=== PATIENT | male | born 1965 | race Caucasian/White ===

== ENCOUNTER 2019-02-01 10:24 | Observation (INO) | payer BC ==
--- NOTE | 2019-02-01 10:55 | ED ---
HPI Chest Pain - HPI Summary HPI Summary: This pt is a 53 y/o male [facility] c/o intermittent chest heaviness since 15:00 yesterday. Pt reports he drove 7 hours 4 days ago and yesterday he drove 7 hours back home. While driving home yesterday around 15:00 he began to feel chest heaviness, described as "50 pounds sitting on" his chest. Denies associated symptoms of nausea, diaphoresis, SOB, dizziness. At its worst his chest pain is rated 3 to 4 out of 10 in severity. He states belching helps his chest heaviness. Pt reports he had difficulty sleeping last night secondary to chest heaviness. Currently he rates his pain 2/10 in severity. Denies SOB or calf pain. Pt denies feeling this pain in the past. Denies hx of indigestion or KS. Denies any past cardiac stress tests. PMHx: DVT in August 2018. Pt took Xarelto for 3 months for DVT, at that time he had flown and drove prior to onset of symptoms. The last time he saw his PCP was at the end of November 2018. FHx: both grandparents with fatal KS in their 80s and father with bypass surgery at age 54. - History of Current Complaint Chief Complaint: EDChestPainROMI Time Seen by Provider: 02/01/19 10:44 Hx Obtained From: Patient Onset/Duration: Started Days Ago - 1, Still Present Timing: Lasting Days - 1 Current Severity: Mild Pain Intensity: 2 Pain Scale Used: 0-10 Numeric Chest Pain Location: Diffuse Chest Pain Radiates: No Character: Heaviness Aggravating Factor(s): Nothing Alleviating Factor(s): Other: - belching Associated Signs and Symptoms: Positive: Chest Pain. Negative: Dizziness, Shortness of Breath, Fever, Chills, Diaphoresis, Nausea, Calf Pain/Swelling - Allergy/Home Medications Allergies/Adverse Reactions: Allergies Allergy/AdvReac Type Severity Reaction Status Date / Time Sulfa (Sulfonamide AdvReac Rash Verified 02/01/19 10:28 Antibiotics) Home Medications: Home Medications NK [No Home Medications Reported] 02/01/19 [History Confirmed 02/01/19] PMH/Surg Hx/FS Hx/Imm Hx Endocrine/Hematology History: Denies: Hx Diabetes Cardiovascular History: Reports: Hx Deep Vein Thrombosis Denies: Hx Hypertension, Hx Myocardial Infarction Sensory History: Denies: Hx Deafness - Cancer History Cancer Type, Location and Year: None reported - Surgical History Surgery Procedure, Year, and Place: None Infectious Disease History: No Infectious Disease History: Denies: History Other Infectious Disease, Traveled Outside the [place] in Last 30 Days - Family History Known Family History: Positive: Cardiac Disease - KS in both grandparents during their 80s. Father with bypass surgery. Negative: Hypertension, Diabetes - Social History Alcohol Use: Daily Alcohol Amount: 2-3 glasses of wine/ day Substance Use Type: Reports: None Smoking Status (MU): Never Smoked Tobacco Review of Systems Negative: Fever, Chills, Skin Diaphoresis Positive: Chest Pain Negative: Shortness Of Breath Negative: Nausea Negative: Other - calf pain Neurological: Other - NEG: dizziness All Other Systems Reviewed And Are Negative: Yes Physical Exam - Summary Physical Exam Summary: VITAL SIGNS: Reviewed. GENERAL: Patient is a well-developed and nourished male who is lying comfortable in the stretcher. Patient is not in any acute respiratory distress. HEAD AND FACE: Normocephalic EYES: PERRLA, EOMI x 2. EARS: Hearing grossly intact. MOUTH: Oropharynx within normal limits. NECK: Supple, trachea is midline, no adenopathy, no JVD, no carotid bruit. CHEST: Symmetric, no tenderness at palpation LUNGS: Clear to auscultation bilaterally. No wheezing or crackles. CVS: Regular rate and rhythm, S1 and S2 present, no murmurs or gallops appreciated. ABDOMEN: Soft, non-tender. Bowel sounds are normal. No abdominal abnormal pulsations. EXTREMITIES: Full ROM in all major joints, no edema, no cyanosis or clubbing. NEURO: Alert and oriented x 3. No acute neurological deficits. Speech is normal and follows commands. SKIN: Dry and warm Triage Information Reviewed: Yes Vital Signs On Initial Exam: Initial Vitals Temp Pulse Resp BP Pulse Ox 98.2 F 61 14 164/100 98 02/01/19 10:29 02/01/19 10:29 02/01/19 10:29 02/01/19 10:29 02/01/19 10:29 Vital Signs Reviewed: Yes Diagnostics - Vital Signs Vital Signs Temp Pulse Resp BP Pulse Ox 02/01/19 10:29 98.2 F 61 14 164/100 98 - Laboratory Result Diagrams: 02/01/19 11:02 02/01/19 11:02 Lab Statement: Any lab studies that have been ordered have been reviewed, and results considered in the medical decision making process. - Radiology Chest XR Radiology Interpretation Completed By: Radiologist Summary of Radiographic Findings: IMPRESSION: No radiographic evidence for acute cardiopulmonary abnormality on this portable chest x-ray. Dr. Moore has reviewed this report. - EKG 10:35 Cardiac Rate: Bradycardia - at 57 bpm EKG Rhythm: Sinus Bradycardia Summary of EKG Findings: No ST elevations. T wave inversion in leads III and aVF. ST depression in V4-V6. 11:27 Cardiac Rate: Bradycardia - at 57 bpm EKG Rhythm: Sinus Bradycardia Summary of EKG Findings: No ST elevations. T wave inversion in lead III. Normal axis. Re-Evaluation - Re-Evaluation First Eval Re-Evaluation Time: 13:37 Change: Worse Comment: Heart rate is 38 bpm. Blood pressure 113/73. He c/o mild dizziness. Chest Pain Course/Dx - Course Assessment/Plan: This patient is a 53-year-old male who presents to the emergency department with a chief complaint of having chest pain. He reports that he had a recent long drive and he has history of DVT. Patient reports that the pain is as somebody sitting on top of his chest. Blood work without any significant abnormality except for glucose of 100. Troponin is 0.00. D- dimer is less than 200. Urinalysis negative for UTI. In the ED course the patient continued to have slight pain and left-sided chest, and he became tachycardic. The heart rate decreased to 37 - 38 bpm. Slight dizziness but no shortness of breath. Because of the symptoms I discussed my physical exam and findings with Dr. Cohen, hospitalist, who accepted the patient for admission. Patient is hemodynamically stable, alert and oriented 3. - Chest Pain Differential Diagnosis/HQI/PQRI: Acute KS, ACS, Angina, CHF, Chest Wall, GI Disease, Lower Respiratory Infection - Diagnoses Provider Diagnoses: Chest pain, Bradycardia - Provider Notifications Discussed Care Of Patient With: Mukul Cohen - hospitalist Time Discussed With Above Provider: 13:41 Instructed by Provider To: Admit As Inpatient Discharge - Sign-Out/Discharge Documenting (check all that apply): Patient Departure - Admit to [facility] Patient Received Moderate/Deep Sedation with Procedure: No - Discharge Plan Condition: Stable Disposition: ADMITTED TO [facility] - Billing Disposition and Condition Condition: STABLE Disposition: Admitted to [facility] - Attestation Statements Document Initiated by Mohsenibe: Yes Documenting Scribe: Florence Alcazar Provider For Whom Scribe is Documenting (Include Credential): Cristian Moore MD Scribe Attestation: Florence Dugan, scribed for Cristian Moore MD on 02/02/19 at 1010. Scribe Documentation Reviewed: Yes Provider Attestation: The documentation as recorded by the Florence robbins accurately reflects the service I personally performed and the decisions made by me, Cristian Moore MD Status of Scribe Document: Viewed
[2019-02-01] MEDS ORDERED: Nitroglycerin TAB 0.4 MG* 0.4 MG TAB SL PRN (10:56)
[2019-02-01] MEDS ORDERED: Metoprolol Tartrate TAB* 25 MG PO ONE (10:56)
[2019-02-01] MEDS ORDERED: Aspirin 81 mg CHEW TAB* 81 MG TAB.CHEW PO ONE (10:56)
[2019-02-01 11:11] LABS: ABS Basophils 0.1 10^3/ul (0-0.2); ABS Eosinophils 0.1 10^3/ul (0-0.6); ABS Lymphocytes 1.8 10^3/ul (1.0-4.8); ABS Monocytes 0.5 10^3/ul (0-0.8); ABS Neutrophils 5.1 10^3/ul (1.5-7.7); ABS Nucleated RBC 0 10^3/ul; Eosinophil % 1.2 %; Hematocrit 45 % (42-52); Hemoglobin 15.6 g/dl (14.0-18.0); Mean Corpuscular HGB Conc 35 g/dl (31-36); Mean Corpuscular Hemoglobin 33 pg (27-31); Mean Corpuscular Volume 96 fL (80-94); Mean Platelet Volume 7.9 fL (7.4-10.4); Nucleated Red Blood Cells % 0; Platelet Count 252 10^3/ul (150-450); Red Blood Count 4.74 10^6/ul (4.00-5.40); Red Cell Distribution Width 13 % (10.5-15); White Blood Count 7.6 10^3/ul (3.5-10.8)
[2019-02-01 11:29] LABS: Albumin 4.2 g/dL (3.2-5.2); Albumin/Globulin Ratio 1.6 (1-3); BUN/Creatinine Ratio 12.2 (8-20); Calcium 8.9 mg/dL (8.6-10.3); EGFR African American 80.5 (>60); EGFR Non-African American 66.5 (>60); Globulin 2.6 g/dL (2-4); Potassium 3.9 mmol/L (3.5-5.0); Total Bilirubin 0.6 mg/dL (0.2-1.0); Total Protein 6.8 g/dL (6.4-8.9)
[2019-02-01 11:33] LABS: CKMB ng/mL 1.3 ng/mL (0.6-6.3)
[2019-02-01 12:00] LABS: Urine Appearance Clear; Urine Bilirubin Negative (Negative); Urine Blood Negative (Negative); Urine Color Colorless; Urine Glucose Negative (Negative); Urine Ketones Negative (Negative); Urine Nitrite Negative (Negative); Urine Protein Negative (Negative); Urine Specific Gravity 1.002 (1.010-1.030); Urine Urobilinogen Negative (Negative)
[2019-02-01 12:13] LABS: TSH (Thyroid Stimulating Horm) 3.06 mcIU/mL (0.34-5.60)
[2019-02-01] MEDS ORDERED: Atorvastatin* 40 MG TAB PO ONE (15:30)
[2019-02-01 16:08] LABS: HDL Cholesterol 53.3 mg/dL
--- NOTE | 2019-02-01 17:09 | ECHO ---
Patient: FEI RIZZO [facility] Rec#: [id number] : 1965 Date: 02/01/2019 Age: 53y Height: 180.34 cm / 71.0 in Weight: 90.72 kg / 199.9 lbs Sex: M BSA: 2.11 Room#: ED 5 Admit Date#: 02/01/2019 Type: Inpatient Referring: Mukul Cohen Reading: Otto Sahni MD Hard Candy Spinner: Fariba Monson RDCS,RDMS CC: Abdifatah Willard MD Transthoracic Echocardiogram Indication: CP BP: 125/86 HR: 53 Rhythm: Bradycardia Findings History: DVT Technical Comments: The study quality is good. Left Ventricle: The left ventricular chamber size is normal. Mild concentric left ventricular hypertrophy is observed. Global left ventricular wall motion and contractility are within normal limits. The estimated ejection fraction is 50-55%. There is no consistent Doppler evidence of clinically significant diastolic dysfunction. Left Atrium: The left atrium is mildly dilated. Right Ventricle: The right ventricular chamber size and systolic function are within normal limits. Right Atrium: The right atrium is mildly dilated. Aortic Valve: The aortic valve is trileaflet. Systolic excursion of the aortic valve is normal. There is a trace of aortic regurgitation. There is no evidence of aortic stenosis. Mitral Valve: The mitral valve leaflets appear normal. There is a trace of mitral regurgitation. There is no evidence of mitral stenosis. Tricuspid Valve: The tricuspid valve leaflets are normal. There is mild tricuspid regurgitation. No pulmonary hypertension is noted. Pulmonic Valve: The pulmonic valve appears normal. There is a trace pulmonic regurgitation. Pericardium: There is no significant pericardial effusion. Aorta: There is borderline dilatation of the ascending aorta. There is no dilatation of the aortic arch. The aortic root is normal in size. Pulmonary Artery: The main pulmonary artery appears normal. Venous: The inferior vena cava appears normal in size. There is an approximate 50% respiratory change in the inferior vena cava dimension. Summary: There was not any prior study for comparison. Conclusions Mild concentric left ventricular hypertrophy is observed. Global left ventricular wall motion and contractility are within normal limits. The estimated ejection fraction is 50-55%. There is a trace of aortic regurgitation. There is a trace of mitral regurgitation. There is mild tricuspid regurgitation. There is no significant pericardial effusion. Measurements Name Value Normal Range RVIDd (AP) 2D 3 cm (0.9 - 2.6) RVDdMajor (2D) 2.6 cm (2.2 - 4.4) RAd ISD 4CH 5.8 cm (3.4 - 4.9) RA (A4C)W 4 cm (2.9 - 4.6) IVSd (2D) 1.1 cm (0.6 - 1) LVPWd (2D) 1 cm (0.6 - 1) LVIDd (2D) 5 cm (3.6 - 5.4) LVIDs (2D) 2.8 cm - LV FS (2D) 45 % (25 - 45) Aortic Annulus 2.4 cm (1.4 - 2.6) Ao root diameter (2D) 3.4 cm (2.1 - 3.5) Ascending Ao 3.5 cm (2.1 - 3.4) Aortic arch 3.4 cm (1.8 - 3.4) LA dimension (AP) 2D 4.1 cm (2.3 - 3.8) LAd ISD 4CH 5.4 cm (2.9 - 5.3) LA ISD 4CH W 4.7 cm (2.5 - 4.5) Name Value Normal Range LA ESV SP 4CH (A/L) 85.54 ml - LA ESV SP 2CH (A/L) 66.36 ml - LA ESV BP (A/L) 76.03 ml - LA ESV BP (A/L) index 36 ml/m2 - LA ESV SP 4CH (MOD) 72.56 ml - LA ESV SP 2CH (MOD) 61.84 ml - Name Value Normal Range MV E-wave Vmax 0.6 m/sec - MV deceleration time 204 msec - MV A-wave Vmax 0.7 m/sec - MV E:A ratio 0.8 ratio - P. vein S-wave Vmax 0.6 m/sec - P. vein D-wave Vmax 0.4 m/sec - P. vein S:D Vmax ratio 1.5 ratio - P. vein A-wave duration 118 msec - LV septal e' Vmax 0.09 m/sec - LV lateral e' Vmax 0.1 m/sec - LV E:e' septal ratio 7 ratio - LV E:e' lateral ratio 6 ratio - Name Value Normal Range AV Vmax 1.1 m/sec - AV VTI 25 cm - AV peak gradient 5 mmHg - AV mean gradient 2.8 mmHg - LVOT Vmax 1.1 m/sec - LVOT VTI 22.5 cm - LVOT peak gradient 5 mmHg - LVOT mean gradient 2 mmHg - LUL Vmax 0.7 m/sec - Name Value Normal Range TR Vmax 2 m/sec - TR peak gradient 16 mmHg - RAP 3 mmHg - RVSP 19 mmHg - IVC diameter 1.3 cm - Name Value Normal Range PV Vmax 0.7 m/sec - PV peak gradient 2 mmHg -
--- NOTE | 2019-02-01 17:20 | HP ---
ADMISSION HISTORY AND PHYSICAL: DATE OF ADMISSION: 02/01/19 ADMITTING PROVIDER: Mukul Cohen MD PRIMARY CARE PROVIDER: Dr. Willard. CHIEF COMPLAINT: Chest pressure. HISTORY OF PRESENT ILLNESS: Lion Hernandez is a 53-year-old male with past medical history of borderline hypertension (never on any medications) and until 3 weeks ago, a nightly bottle of wine drinker. He also has a history of occlusive DVT in the left posterior tibial veins, status post 3 months of Xarelto treatment back in August 2018. This was after a long air flight to [place] about 10 days prior. He was in his usual state of health except for of note he stopped drinking for the last 3 weeks and then drank a bottle and a half of wine 2 nights ago on 01/30/19. The next day, yesterday, he was returning on a 7-hour car ride (he had done this 7-hour car ride on Thursday as well) and he developed some tightness and pressure in his central chest that was generalized and at worse 5/10 intensity. It persisted into the morning, although he was able to sleep, and actually got a little bit worse again right before he came to the emergency room this afternoon, again 5/10. It did improve with 324mg aspirin and metoprolol 25 mg p.o. Pressure is currently 1/10. He describes the sensation as not necessarily exertional; in fact with activity, it seems to take his mind off the pressure. He denies shortness of breath, fevers, chills, lightheadedness, dizziness, or radiation down into the arm. He did have some pain or tightness in his left neck at the same time that this developed. He does get some improvement of the pain when he stretches his shoulder blades backwards. He was referred to the hospitalist service for ACS rule out, especially after he got bradycardic to the mid 30s. His troponins have been negative x2. His EKG showed some T-wave inversions in III, but no acute ST elevations or depressions. An echocardiogram was just performed but has not been read. He often exerts himself - he heats his home with an external wood fueled furnace and cuts and hauls the firewood often. He is being admitted to observation status with likely planned exercise stress test in the morning. PAST MEDICAL HISTORY: Borderline hypertension; frequent daily alcohol use of a bottle of wine a night for 20 years until 3 weeks ago and then relapsed 2 nights ago. MEDICATIONS: He is on no medications. ALLERGIES: He has allergy to SULFA DRUGS, although he took it for a month and then developed a rash. FAMILY HISTORY: His father is alive at age 84, but has had a CABG at age 65. His mother has a history of hypertension and bradycardia. His 2 brothers are healthy at age 61 and 66. Three grandparents of myocardial infarction, all in their early 80s. 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 He does a lot of plowing in the winter (not exertional) and yard work in the summer. He is a never smoker. A bottle of wine drinker a night as above. Denies any drug use. His medical surrogate is his , Chandni Hernandez. He desires to be full code. REVIEW OF SYSTEMS: A complete 14-point review of systems negative except as per HPI. PHYSICAL EXAMINATION GENERAL APPEARANCE: No acute distress. VITAL SIGNS: Temperature 98.2; pulse rate initially 61, dropped down to 38 per nurse's report; blood pressure initially 164/100; satting 98% on room air. HEENT: Normocephalic, atraumatic. Pupils are equal, round, and reactive to light. Extraocular motions intact. No scleral icterus. Moist mucous membranes. NECK: Supple. No cervical lymphadenopathy. LUNGS: Clear to auscultation bilaterally with no wheezing, rales, or rhonchi. CARDIOVASCULAR: Regular rate and rhythm. No murmurs, rubs, or gallops. ABDOMEN: Soft, nontender, nondistended. No rebound. No guarding. EXTREMITIES: Warm and well perfused. No peripheral edema. NEUROLOGIC: Moving all extremities. Orthopedic Surgeon strength 5/5. Biceps 5/5 Hip flexion 5/5. Dorsiflexion and plantarflexion 5/5. Cranial nerves II-XII intact. SKIN: No lesions. No rashes. DIAGNOSTIC STUDIES/LAB DATA: White count 7.6, hemoglobin 15.6, platelets 252. INR 0.90. Sodium 137, potassium 3.9, chloride 105, carbon dioxide 26, BUN 14 , creatinine 1.15, glucose 102, lactic acid 0.8, magnesium 2.0. AST 25, ALT 33 , alk phos 60. Troponin 0.00 x2, BNP 69. Albumin 4.2. TSH 3.06. Urinalysis: Specific gravity 1.002. Imaging: Chest x-ray demonstrated no acute abnormalities. EKG demonstrated at 11:27 bradycardia at 57, T-wave inversions in III. No ST elevations or depressions. Normal axis, QTc of 425. EKG at 10:35 was similar, but with a PVC. ASSESSMENT AND PLAN: Lion Hernandez is a 53-year-old male with past medical history of borderline hypertension, treated provoked deep venous thrombosis and frequent alcohol use, presents with chest pressure that seems nonexertional, but that was relieved with some aspirin and metoprolol. I am somewhat suspicious that his relapse with 1-1/2 bottles of alcohol after long absence may be playing a role here in revealing some musculoskeletal pains that may otherwise have been occult, but given his bradycardia (although in the setting of new beta-ramy administration of note), frequent alcohol use and family history, it seems reasonable to rule him out with a stress test in the morning and additional troponin. He got an echocardiogram here in the ED. We are awaiting on that result to come back. Given the bradycardia, I am going to hold off on any beta- blockers for now, consider restart as able. I am going to give him atorvastatin 40mg. Check a lipid panel, A1c. Put him on telemetry. He is NPO at midnight, he can eat a heart-healthy diet until then. D- dimer was of note negative. Low concern for pulmonary embolism at this time. We will see if there is any evidence of right heart strain on the echocardiogram. He is not short of breath or tachycardic. Monitor closely for signs of any alcohol withdrawal. He is a full code. Medical surrogate is his , Chandni Hernandez. [id number]/CPS #: [id number] [facility] CENTERBerta
[2019-02-02] MEDS ORDERED: Aspirin 81 mg CHEW TAB* 81 MG TAB.CHEW PO SCH (09:00)
[2019-02-02 12:01] VITALS: BP 129/85
[2019-02-02] MEDS ORDERED: Atorvastatin* 40 MG TAB PO SCH (17:00)
--- NOTE | 2019-02-02 21:51 | DS ---
DISCHARGE SUMMARY: DATE OF ADMISSION: 02/01/19 DATE OF DISCHARGE: 02/02/19 ADMITTING PROVIDER: Mukul Cohen MD ATTENDING PHYSICIAN ON DAY OF DISCHARGE: Mukul Cohen MD PRIMARY CARE PROVIDER: Dr. Willard. CHIEF COMPLAINT: Chest pressure. PRINCIPAL DIAGNOSIS: Chest pressure, acute coronary syndrome ruled out. HISTORY OF PRESENT ILLNESS/HOSPITAL COURSE: Lion Hernandez is a 53-year-old male with a past medical history of borderline hypertension, never on any medications and until 3 weeks ago, a nightly bottle of wine drinker, and remote occlusive DVT provoked with an air travel in August 2018, no longer on Xarelto. Please see H and P for full details, but briefly, he had a drink again , another bottle and a half, 2 days prior to admission, and then during a 7- hour car ride, he felt chest pressure, 5/10, that was atypical in nature, but did not resolve and was persistent the next day. It improved in the emergency room when he got aspirin and metoprolol 25 mg, though that did cause him to be bradycardic to the mid 30s. His initial troponins were negative. He was admitted for ACS rule out. His troponins were always negative, no ischemic changes on the EKG. On hospital day #2, he underwent a exercise stress test which reached maximal heart rate and was normal without any symptoms. He is being discharged with close followup with Dr. Willard and recommendation to abstain or at least greatly moderate his wine drinking. Of note, his LDL was 111, HDL was 53, TSH was 3.0, BMP 69, A1c was 5.7. He was symptom free at the time of discharge. His 10-year ASCVD risk score was 5.2%, therefore he was not started on a statin at this time. He was recommended to start a baby aspirin, however. He had a transthoracic echocardiogram which demonstrated ejection fraction 50% to 55%, significant diastolic dysfunction, mild tricuspid regurgitation, no significant pericardial effusion, trace aortic regurg, trace mitral regurg, mild concentric left ventricular hypertrophy, left ventricular wall motion and contractility within normal limits. DISCHARGE MEDICATIONS: Include aspirin 81 mg daily (new). FOLLOWUP: The patient should follow up with Dr. Willard within 1 to 2 weeks. If symptoms return, please call his PCP or return to the emergency room. DISCHARGE DIET: Heart healthy. DISPOSITION: Home, improved. TIME SPENT: Time spent on discharge 35 minutes. [id number]/CPS #: [id number] MTDBerta
== END 2019-02-02 11:45 | disposition home or self-care (01) ==
LOC: ED 10:24 → MEDTELE 15:24
PROVIDERS: ADMIT Internal Medicine; ATTEND Internal Medicine
DX: R07.9 Chest pain, unspecified (principal); I10 Essential (primary) hypertension; Z88.2 Allergy status to sulfonamides; Z86.718 Personal history of other venous thrombosis and embolism
CPT/HCPCS: 36415; 71045; 80053; 80061; 81003; 82550; 82553; 83036; 83605; 83735; 83880; 84443; 84484; 85025; 85379; 85610; 85730; 93005; 93017; 93306; 99284; A9270-GY; G0378